=== PATIENT | female | born 1990 | race Two or more races ===

== ENCOUNTER 2019-11-02 22:33 | Inpatient (IN) | payer BC ==
[~2019-11-02] VITALS: Ht 165.1 cm; Wt 82.0 kg
[2019-11-02] MEDS ORDERED: OXYTOCIN 30U/ 0.9% NaCL 500ML 500 ML IV ONE (22:48)
[2019-11-02] MEDS ORDERED: D5%-LACTATED RINGERS 1,000 ML IV SCH (22:48)
[2019-11-02] MEDS ORDERED: LACTATED RINGERS 1,000 ML IV SCH (22:48)
[2019-11-02] MEDS ORDERED: ONDANSETRON 2MG/ML, 2ML IVPush PRN (23:00)
[2019-11-02] MEDS ORDERED: TERBUTALINE 1 MG/ML, 1ML IVPush PRN (23:00)
[2019-11-02] MEDS ORDERED: METOCLOPRAMIDE 5 MG/ML, 2ML IVPush PRN (23:00)
[2019-11-02] MEDS ORDERED: CALCIUM CARBONATE 500 MG TAB.CHEW PO PRN (23:00)
[2019-11-02] MEDS ORDERED: SODIUM CITRATE/CITRIC ACID 30 ML UDC PO PRN (23:00)
[2019-11-02] MEDS ORDERED: OXYTOCIN 30U/ 0.9% NaCL 500ML 500 ML ONE (23:00)
[2019-11-02] MEDS ORDERED: TERBUTALINE 1 MG/ML, 1ML SQ PRN (23:00)
[2019-11-02] MEDS ORDERED: FENTANYL PF 100 MCG/2ML IVPush PRN (23:00)
[2019-11-02] MEDS ORDERED: NEWBORN KIT ONE (23:00)
[2019-11-02] MEDS ORDERED: FENTANYL PF 100 MCG/2ML IV PRN (23:00)
[2019-11-02 23:12] VITALS: BP 123/71
[2019-11-02] MEDS ORDERED: OXYTOCIN 30U/ 0.9% NaCL 500ML 500 ML IV PRN (23:34)
[2019-11-02 23:35] LABS: MEAN CORPUSCULAR HEMOGLOBIN 30.6 pg (27.0-34.8); MEAN CORPUSCULAR HGB CONC 33.9 g/dL (32.4-35.8); MEAN CORPUSCULAR VOLUME 90.1 fL (80-100); PLATELET COUNT 193 x10^3/uL (130-400); RED BLOOD COUNT 4.28 x10^6/uL (3.82-5.3); RED CELL DISTRIBUTION WIDTH 13.6 % (9.6-15.2)
[2019-11-03 00:39] LABS: BASOPHILS # (AUTO) 0.04 x10^3/uL (0-0.1); BASOPHILS % (AUTO) 0 % (0-1); EOSINOPHILS # (AUTO) 0.06 x10^3/uL (0-0.4); EOSINOPHILS % (AUTO) 0 % (1-7); LYMPHOCYTES # (AUTO) 1.38 x10^3/uL (1-3.4); LYMPHOCYTES % (AUTO) 9 % (22-44); MD SCAN; MONOCYTES # (AUTO) 0.68 x10^3/uL (0.2-0.8); MONOCYTES % (AUTO) 4 % (2-9); NEUTROPHILS # (AUTO) 14.07 x10^3/uL (1.8-6.8); NEUTROPHILS % (AUTO) 87 % (42-75)
[2019-11-03] MEDS ORDERED: FENTANYL PF 100 MCG/2ML ONE ×3 (03:34→21:58)
[2019-11-03] MEDS ORDERED: FENTANYL/BUPIV./NS/PF 250 ML EPIDCONT SCH ×2 (05:31→06:08)
[2019-11-03] MEDS ORDERED: LACTATED RINGERS 1,000 ML IV SCH ×2 (05:31→06:08)
[2019-11-03] MEDS ORDERED: FENTANYL/BUPIV./NS/PF 250 ML EPIDCONT ONE (05:37)
[2019-11-03] MEDS ORDERED: BUPIVACAINE 0.25% ONE ×2 (05:47→09:44)
[2019-11-03] MEDS ORDERED: EPHEDRINE 50 MG/ML, 1ML IVPush PRN ×3 (06:00→16:30)
[2019-11-03] MEDS ORDERED: LACTATED RINGERS 1,000 ML IVBOLUS PRN (06:30)
[2019-11-03] MEDS ORDERED: ONDANSETRON 2MG/ML, 2ML IVPush PRN (06:30)
[2019-11-03] MEDS ORDERED: DIPHENHYDRAMINE 50 MG/ML, 1ML IVPush PRN ×2 (06:30→16:30)
[2019-11-03] MEDS ORDERED: NALOXONE 0.4 MG/ML, 1ML IVPush PRN (06:30)
[2019-11-03] MEDS: LACTATED RINGERS 1,000 ML IVBOLUS PRN ×3 (07:23→14:17)
[2019-11-03] MEDS ORDERED: SODIUM CITRATE/CITRIC ACID 30 ML UDC ONE (14:08)
[2019-11-03] MEDS ORDERED: METOCLOPRAMIDE 5 MG/ML, 2ML ONE (14:08)
[2019-11-03] MEDS ORDERED: METOCLOPRAMIDE 5 MG/ML, 2ML IV ONE (14:30)
[2019-11-03] MEDS ORDERED: AZITHROMYCIN 500 MG in SODIUM CHLORIDE 0.9% 250 ML IV ONE (14:30)
[2019-11-03] MEDS ORDERED: SODIUM CITRATE/CITRIC ACID 30 ML UDC PO ONE (14:30)
[2019-11-03] MEDS ORDERED: LACTATED RINGERS 1,000 ML IVBOLUS ONE (14:30)
[2019-11-03] MEDS: LACTATED RINGERS 1,000 ML IV SCH ×3 (16:15→23:57)
[2019-11-03] MEDS ORDERED: METOPROLOL 1 MG/ML, 5ML IV PRN (16:30)
[2019-11-03] MEDS ORDERED: CARBOPROST TROMETHAMINE 250 MCG/ML, 1ML IM PRN (16:30)
[2019-11-03] MEDS ORDERED: OXYcodone 5 MG/5 ML ORAL.SOL UDC PO PRN (16:30)
[2019-11-03] MEDS ORDERED: ONDANSETRON 2MG/ML, 2ML IV PRN ×2 (16:30)
[2019-11-03] MEDS ORDERED: OXYcodone IR 5MG TABLET PO PRN (16:30)
[2019-11-03] MEDS ORDERED: MORPHINE SULFATE 4 MG/ML, 1ML IVPush PRN (16:30)
[2019-11-03] MEDS ORDERED: METHYLERGONOVINE 0.2 MG/ML IM PRN (16:30)
[2019-11-03] MEDS ORDERED: HYDROmorphone 2 MG/ML, 1ML IVPush PRN (16:30)
[2019-11-03] MEDS ORDERED: morphine SULFATE 10 MG/ML, 1ML IVPush PRN (16:30)
[2019-11-03] MEDS ORDERED: PROMETHAZINE 25 MG/ML, 1ML IV PRN (16:30)
[2019-11-03] MEDS ORDERED: FENTANYL PF 100 MCG/2ML IV PRN (16:30)
[2019-11-03] MEDS ORDERED: MISOPROSTOL 200 MCG TABLET PR PRN (16:30)
[2019-11-03] MEDS ORDERED: LABETALOL 5MG/ML, 20ML IV PRN (16:30)
[2019-11-03] MEDS ORDERED: MEPERIDINE/PF 50 MG/ML ONE (16:41)
[2019-11-03] MEDS: MEPERIDINE/PF 25MG/ML,1ML IVPush PRN ×2 (16:45→17:12)
[2019-11-03] MEDS: OXYTOCIN 30U/ 0.9% NaCL 500ML 500 ML IV SCH (16:59)
[2019-11-03] MEDS ORDERED: OXYcodone 5 MG/5 ML ORAL.SOL UDC ONE (17:05)
[2019-11-03] MEDS ORDERED: ACETAMINOPHEN 325 MG TABLET ONE (17:58)
[2019-11-03] MEDS ORDERED: IBUPROFEN 800 MG TABLET ONE (17:58)
[2019-11-03] MEDS ORDERED: GENTAMICIN PER PHARMACY MC PRN (18:00)
[2019-11-03] MEDS: IBUPROFEN 800 MG TABLET PO PRN (18:02)
[2019-11-03] MEDS: ACETAMINOPHEN 325 MG TABLET PO PRN (18:02)
[2019-11-03] MEDS: AMPICILLIN 2 GM in SODIUM CHLORIDE 0.9% 100 ML IV SCH (18:35)
[2019-11-03] MEDS ORDERED: PHARMACOKINETIC MONITORING MC PRN (19:00)
[2019-11-03] MEDS ORDERED: PHARMACOKINETIC CONSULTATION MC ONE (19:00)
[2019-11-03] MEDS ORDERED: CLINDAMYCIN PMX 900MG/50ML 50 ML ONE (19:14)
[2019-11-03] MEDS: CLINDAMYCIN PMX 900MG/50ML 50 ML IV SCH (19:17)
[2019-11-03 19:19] LABS: MEAN CORPUSCULAR HEMOGLOBIN 30.4 pg (27.0-34.8); MEAN CORPUSCULAR HGB CONC 34.2 g/dL (32.4-35.8); MEAN CORPUSCULAR VOLUME 88.8 fL (80-100); PLATELET COUNT 192 x10^3/uL (130-400); RED BLOOD COUNT 4.02 x10^6/uL (3.82-5.3); RED CELL DISTRIBUTION WIDTH 13.6 % (9.6-15.2)
[2019-11-03 19:20] LABS: MD YES
[2019-11-03 19:24] LABS: <RBC MORPHOLOGY> NORMAL; BAND#(MANUAL) 1.67 x10^3/uL; BANDS%(MANUAL) 15 % (0-7); LYMPHS% (MANUAL) 9 % (22-44); METAMYELOCYTES# (MANUAL) 0.11 x10^3/uL (0-0); METAMYELOCYTES% (MANUAL) 1 % (0-1); MONOS#(MANUAL) 0.22 x10^3/uL (0.3-2.7); MONOS% (MANUAL) 2 % (2-9); SEGS% (MANUAL) 73 % (42-75)
[2019-11-03 19:25] LABS: <PLATELET ESTIMATE> ADEQUATE; <PLT MORPHOLOGY> NORMAL PLT MORPH
[2019-11-03] MEDS: GENTAMICIN 140 MG in SODIUM CHLORIDE 0.9% 50 ML IV SCH (20:19)
[2019-11-03 22:22] LABS: MEAN CORPUSCULAR HEMOGLOBIN 30.3 pg (27.0-34.8); MEAN CORPUSCULAR VOLUME 89.2 fL (80-100); MEAN PLATELET VOLUME 8.8 fL (7.4-10.4); PLATELET COUNT 167 x10^3/uL (130-400); RED BLOOD COUNT 3.72 x10^6/uL (3.82-5.3); RED CELL DISTRIBUTION WIDTH 13.8 % (9.6-15.2)
[2019-11-03 23:07] LABS: MD YES
[2019-11-03 23:10] LABS: BAND#(MANUAL) 2.62 x10^3/uL; BANDS%(MANUAL) 22 % (0-7); EOS#(MANUAL) 0.12 x10^3/uL (0.0-0.4); EOS% (MANUAL) 1 % (1-7); LYMPH#(MANUAL) 0.95 x10^3/uL (1-3.4); LYMPHS% (MANUAL) 8 % (22-44); METAMYELOCYTES# (MANUAL) 0.24 x10^3/uL (0-0); METAMYELOCYTES% (MANUAL) 2 % (0-1); MONOS#(MANUAL) 0.36 x10^3/uL (0.3-2.7); MONOS% (MANUAL) 3 % (2-9); SEG#(MANUAL) 7.62 x10^3/uL (1.8-6.8); SEGS% (MANUAL) 64 % (42-75)
[2019-11-03 23:11] LABS: <PLATELET ESTIMATE> ADEQUATE; <PLT MORPHOLOGY> NORMAL PLT MORPH; <RBC MORPHOLOGY> NORMAL
[2019-11-03] MEDS ORDERED: HYDROmorphone 2 MG/ML, 1ML ONE (23:33)
[2019-11-04] MEDS: LACTATED RINGERS 1,000 ML IV SCH ×5 (00:15→22:15)
[2019-11-04] MEDS: AMPICILLIN 2 GM in SODIUM CHLORIDE 0.9% 100 ML IV SCH ×4 (00:27→18:30)
[2019-11-04 00:58] VITALS: BP 110/75
[2019-11-04] MEDS: OXYTOCIN 30U/ 0.9% NaCL 500ML 500 ML IV SCH ×3 (02:15→22:15)
[2019-11-04] MEDS: ACETAMINOPHEN 325 MG TABLET PO PRN ×4 (03:22→18:46)
[2019-11-04] MEDS: IBUPROFEN 800 MG TABLET PO PRN ×3 (03:22→19:25)
[2019-11-04] MEDS: SIMETHICONE 80 MG CHEW TAB PO PRN ×3 (03:22→18:46)
[2019-11-04] MEDS: OXYcodone IR 5MG TABLET PO PRN ×3 (03:23→12:43)
[2019-11-04] MEDS: CLINDAMYCIN PMX 900MG/50ML 50 ML IV SCH ×3 (03:25→19:25)
[2019-11-04 04:00] VITALS: BP 110/77
[2019-11-04 06:38] LABS: CREATININE 0.48 mg/dL (0.55-1.02)
[2019-11-04 07:05] VITALS: BP 101/71
[2019-11-04] MEDS: PRENATAL VIT/IRON/FA 1 EACH TABLET PO SCH (07:37)
[2019-11-04] MEDS: GENTAMICIN 140 MG in SODIUM CHLORIDE 0.9% 50 ML IV SCH (07:54)
[2019-11-04 11:31] VITALS: BP 113/79
[2019-11-04 19:15] VITALS: BP 113/77
[2019-11-04] MEDS ORDERED: GENTAMICIN 160 MG in SODIUM CHLORIDE 0.9% 50 ML IV SCH (20:00)
[2019-11-05] MEDS: LACTATED RINGERS 1,000 ML IV SCH ×5 (00:15→18:15)
[2019-11-05] MEDS: AMPICILLIN 2 GM in SODIUM CHLORIDE 0.9% 100 ML IV SCH ×2 (00:37→08:30)
[2019-11-05] MEDS: CLINDAMYCIN PMX 900MG/50ML 50 ML IV SCH (03:43)
[2019-11-05] MEDS: IBUPROFEN 800 MG TABLET PO PRN ×2 (03:57→15:58)
[2019-11-05 07:22] LABS: MEAN CORPUSCULAR HEMOGLOBIN 30.3 pg (27.0-34.8); MEAN CORPUSCULAR HGB CONC 33.6 g/dL (32.4-35.8); MEAN CORPUSCULAR VOLUME 90.2 fL (80-100); MEAN PLATELET VOLUME 8.1 fL (7.4-10.4); PLATELET COUNT 206 x10^3/uL (130-400); RED BLOOD COUNT 3.24 x10^6/uL (3.82-5.3); RED CELL DISTRIBUTION WIDTH 13.8 % (9.6-15.2)
[2019-11-05 07:30] VITALS: BP 111/75
[2019-11-05] MEDS: PRENATAL VIT/IRON/FA 1 EACH TABLET PO SCH (07:53)
[2019-11-05] MEDS: DOCUSATE 100 MG CAPSULE PO PRN (07:53)
[2019-11-05 07:56] LABS: MD YES
[2019-11-05 07:58] LABS: <PLATELET ESTIMATE> ADEQUATE; <PLT MORPHOLOGY> NORMAL PLT MORPH; <RBC MORPHOLOGY> NORMAL; BAND#(MANUAL) 0.72 x10^3/uL; BANDS%(MANUAL) 6 % (0-7); EOS#(MANUAL) 0.24 x10^3/uL (0.0-0.4); EOS% (MANUAL) 2 % (1-7); LYMPH#(MANUAL) 1.08 x10^3/uL (1-3.4); LYMPHS% (MANUAL) 9 % (22-44); METAMYELOCYTES# (MANUAL) 0.12 x10^3/uL (0-0); METAMYELOCYTES% (MANUAL) 1 % (0-1); MONOS#(MANUAL) 0.48 x10^3/uL (0.3-2.7); MONOS% (MANUAL) 4 % (2-9); SEG#(MANUAL) 9.36 x10^3/uL (1.8-6.8); SEGS% (MANUAL) 78 % (42-75)
[2019-11-05] MEDS: OXYTOCIN 30U/ 0.9% NaCL 500ML 500 ML IV SCH ×2 (08:15→18:15)
[2019-11-05] MEDS ORDERED: CLINDAMYCIN PMX 900MG/50ML 50 ML IV ONE (10:30)
[2019-11-05 12:45] VITALS: BP 112/77
[2019-11-05] MEDS: FERROUS GLUCONATE 324 MG TABLET PO SCH (15:58)
[2019-11-05] MEDS: SIMETHICONE 80 MG CHEW TAB PO PRN (16:01)
[2019-11-05 20:15] VITALS: BP 111/77
[2019-11-05] MEDS: AMOXICILLIN/CLAV 875-125MG TABLET PO SCH (22:10)
[2019-11-06] MEDS: LACTATED RINGERS 1,000 ML IV SCH ×3 (00:15→08:15)
[2019-11-06 00:30] VITALS: BP 123/84
[2019-11-06] MEDS: IBUPROFEN 800 MG TABLET PO PRN ×3 (01:08→16:40)
[2019-11-06] MEDS: OXYTOCIN 30U/ 0.9% NaCL 500ML 500 ML IV SCH (04:15)
[2019-11-06 08:55] VITALS: BP 105/74
[2019-11-06] MEDS: FERROUS GLUCONATE 324 MG TABLET PO SCH ×2 (09:23→16:40)
[2019-11-06] MEDS: DOCUSATE 100 MG CAPSULE PO PRN (09:23)
[2019-11-06] MEDS: PRENATAL VIT/IRON/FA 1 EACH TABLET PO SCH (09:23)
[2019-11-06] MEDS: AMOXICILLIN/CLAV 875-125MG TABLET PO SCH ×2 (09:24→21:09)
[2019-11-06] MEDS ORDERED: POLYETHYLENE GLYCOL 17 GM PACKET PO SCH (12:00)
[2019-11-06 16:45] VITALS: BP 117/83
[2019-11-06 20:00] VITALS: BP 120/78
[2019-11-07] MEDS: IBUPROFEN 800 MG TABLET PO PRN ×2 (00:44→08:14)
[2019-11-07 07:45] VITALS: BP 113/82
[2019-11-07] MEDS: PRENATAL VIT/IRON/FA 1 EACH TABLET PO SCH (08:14)
[2019-11-07] MEDS: DOCUSATE 100 MG CAPSULE PO PRN (08:14)
[2019-11-07] MEDS: FERROUS GLUCONATE 324 MG TABLET PO SCH (08:14)
[2019-11-07] MEDS: AMOXICILLIN/CLAV 875-125MG TABLET PO SCH (08:14)
[2019-11-07] MEDS ORDERED: DOCU-131 PO (10:52)
[2019-11-07] MEDS ORDERED: IBUP-1222 PO (10:52)
[2019-11-07] MEDS ORDERED: FERR324T5 PO (10:53)
[2019-11-07] MEDS ORDERED: AMOX1TAB64 PO (10:53)
[2019-11-07] MEDS ORDERED: OXYC-302 PO (10:54)
== END 2019-11-07 11:11 | disposition home or self-care (01) | DRG 786 ==
LOC: LDOP 22:33 → LDIP 23:00 → 2NW 11-04 00:33
PROVIDERS: ADMIT Obstetrics & Gynecology; ATTEND Obstetrics & Gynecology
PROC: 10D00Z1 Extraction of Products of Conception, Low, Open Approach (ICD-10-PCS; principal; 2019-11-03)
DX: O34.211 Maternal care for low transverse scar from previous cesarean delivery (principal); O41.1230 Chorioamnionitis, third trimester, not applicable or unspecified; O75.3 Other infection during labor; D62 Acute posthemorrhagic anemia; O62.1 Secondary uterine inertia; O76 Abnormality in fetal heart rate and rhythm complicating labor and delivery; Z37.0 Single live birth; Z3A.39 39 weeks gestation of pregnancy; Z88.2 Allergy status to sulfonamides; E06.3 Autoimmune thyroiditis; O99.284 Endocrine, nutritional and metabolic diseases complicating childbirth; O66.41 Failed attempted vaginal birth after previous cesarean delivery; O99.02 Anemia complicating childbirth; Z80.3 Family history of malignant neoplasm of breast; Z82.49 Family history of ischemic heart disease and other diseases of the circulatory system; Z83.3 Family history of diabetes mellitus; O99.62 Diseases of the digestive system complicating childbirth
CPT/HCPCS: 36415; 82565; 82803; 83605; 84520; 85025; 86900; G0378; J0290; J0456; J0690; J1170; J1885; J3010; J3490; C1765; J1580; J2175; J2590; J2765; J7050; J7120